=== PATIENT | male | born 1965 | race Caucasian/White ===

== ENCOUNTER → 2022-02-01 | Outpatient (CLI) | payer BC ==
--- NOTE | 2022-02-01 12:41 | XR ---
EXAMINATION TYPE: XR chest 2V DATE OF EXAM: 02/01/2022 COMPARISON: None HISTORY: 56-year-old male R07.2, complaining of midsternal chest pain with deep breaths. TECHNIQUE: Frontal and lateral views FINDINGS: Heart upper limits of normal in size. Mild ectasia/tortuosity of the thoracic aorta. Pulmonary vascul ature within normal limits. No consolidation or pleural effusion. 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 IMPRESSION: Borderline heart size. No acute process seen.
== END | disposition home or self-care (01) ==
LOC: RADXRMAIN 10:11
PROVIDERS: ATTEND Nurse Practitioner Family
DX: R07.2 Precordial pain (principal)
CPT/HCPCS: 71046

== ENCOUNTER → 2024-06-12 | Day surgery (SDC) | payer BC ==
[~2024-06-12] MED LIST: LACTATED RINGERS 1,000 ML IV SCH; LIDOCAINE 1% INJ 10MG/ML (20 ML MDV) ONE; PROPOFOL 10 MG/ML 20 ML VIAL IV ONE
[2024-06-12 10:57] VITALS: RESP 16; TEMP 97.9
[2024-06-12] MEDS: IV FLUID CONTINUATION 1,000 ML IV ONE (11:06)
--- NOTE | 2024-06-12 11:46 | P.PCN ---
Date of Procedure: 06/12/24 Procedure(s) Performed: BRIEF HISTORY: Patient is a 58-year-old pleasant white male scheduled for an elective colonoscopy as a part of screening for colon cancer. PROCEDURE PERFORMED: Colonoscopy. PREOPERATIVE DIAGNOSIS: Screening for colon cancer. IV sedation per Anesthesia. PROCEDURE: After informed consent was obtained, the patient, was brought into the endoscopy unit. IV sedation was administered by Anesthesia under continuous monitoring. Digital rectal examination was normal. Initially the Olympus CF-160 flexible video colonoscope was then inserted in the rectum, gradually advanced into the cecum without any difficulty. Careful examination was performed as the scope was gradually being withdrawn. Ileocecal valve and the appendiceal orifice were visualized and appeared normal. Prep was excellent. Mucosa of the cecum, ascending colon, transverse colon, descending colon, sigmoid colon, and rectum appeared normal. Retroflexion was performed in the rectum and grade 2 internal hemorrhoid were seen. The patient tolerated the procedure well. IMPRESSION: Normal-appearing colon from rectum to cecum with no evidence of colorectal neoplasia. Grade 2 internal hemorrhoids. RECOMMENDATIONS: Findings of this examination were discussed with the patient as well as his family. He was advised to have repeat screening colonoscopy in 10 years.
[2024-06-12 12:02] VITALS: BP 126/62; PULSE 57
== END ==
LOC: ORWHC2ENDO 10:35
PROVIDERS: ATTEND Internal Medicine Gastroenterology
DX: Z12.11 Encounter for screening for malignant neoplasm of colon (principal); K64.1 Second degree hemorrhoids; J45.20 Mild intermittent asthma, uncomplicated; Z79.899 Other long term (current) drug therapy; Z87.19 Personal history of other diseases of the digestive system
CPT/HCPCS: 45378; J2003; J2704